=== PATIENT | male | born 1965 | race Caucasian/White ===

== ENCOUNTER 2020-04-17 12:02 | Inpatient (IN) | payer OTHER ==
[2020-04-17] VITALS (17 sets, daily range): BP systolic 113–149; BP diastolic 39–90
[~2020-04-17] VITALS: Ht 182.9 cm; Wt 124.5 kg
--- NOTE | 2020-04-17 12:05 | NUR ---
MD asked pt if he wants pain meds and the pt refused. pt aware he is not to drink anything for now.
[2020-04-17] MEDS ORDERED: NO HOME MEDS (12:16)
[2020-04-17 13:18] LABS: BASOPHILS # (AUTO) 0.1 X10'3 (0-0.2); BASOPHILS % (AUTO) 0.3 % (0-1); EOSINOPHILS % (AUTO) 0 % (0-6); HEMATOCRIT 46.9 % (42.0-52.0); HEMOGLOBIN 15.7 g/dl (14.0-17.9); LYMPHOCYTES # (AUTO) 0.8 X10'3 (1.1-4.8); LYMPHOCYTES % (AUTO) 3.5 % (21-51); MEAN CORPUSCULAR HEMOGLOBIN 28.1 PG (27.0-31.0); MEAN CORPUSCULAR HGB CONC 33.5 g/dL (33.0-36.5); MEAN PLATELET VOLUME 8.7 FL (7.4-10.4); MONOCYTES # (AUTO) 1.8 X10'3 (0-0.9); MONOCYTES % (AUTO) 8.2 % (2-12); NEUTROPHILS # (AUTO) 18.9 X10'3 (1.8-7.7); PLATELET COUNT 306 X10'3 (140-440); RED BLOOD COUNT 5.59 X10'6 (4.70-6.10); RED CELL DISTRIBUTION WIDTH 13.9 % (11.5-14.5); WHITE BLOOD COUNT 21.5 X10'3 (4.5-11.0)
[2020-04-17 13:31] LABS: ALANINE AMINOTRANSFERASE 30 U/L (12-78); ALBUMIN 3.7 G/DL (3.4-5.0); ALKALINE PHOSPHATASE 92 IU/L (46-116); ANION GAP 11 (8-16); ASPARTATE AMINO TRANSFERASE 16 U/L (10-37); BILIRUBIN,TOTAL 1.2 MG/DL (0.1-1.0); BLOOD UREA NITROGEN 13 MG/DL (7-18); BUN/CREATININE RATIO 9.9 (5.4-32.0); CALCIUM 9.4 MG/DL (8.5-10.1); CHLORIDE 97 MMOL/L (99-107); CREATININE 1.31 MG/DL (0.60-1.10); GLUCOSE 276 MG/DL (70-104); LIPASE 75 U/L (73-393); POTASSIUM 3.9 MMOL/L (3.5-5.1); SODIUM 132 MMOL/L (135-145); TOTAL CARBON DIOXIDE 24.5 MMOL/L (24-32); TOTAL PROTEIN 7.5 G/DL (6.4-8.2); eGFR 57 ML/MIN
[2020-04-17] MEDS ORDERED: piperacillin/tazo 3.375gm/50ml 50 ML IV ONE (13:50)
[2020-04-17] MEDS ORDERED: normal saline 1000ML IV soln IVB ONE (13:50)
[2020-04-17] MEDS ORDERED: ondansetron/PF 4mg/2ml inj IV PRN ×2 (14:00→16:35)
[2020-04-17] MEDS ORDERED: mag hydrox/Alum hydrox/simeth 30ml oral suspension PO PRN (14:00)
[2020-04-17] MEDS ORDERED: morphine 2 MG/ML inj. syringe IV PRN ×2 (14:00→16:35)
[2020-04-17] MEDS ORDERED: HYDROcodone/acetaminophen 5mg/325mg tablet PO PRN (14:00)
[2020-04-17] MEDS ORDERED: magnesium hydroxide 30ml (MOM) UD suspension PO PRN (14:00)
[2020-04-17] MEDS ORDERED: dextrose 5%-1/2 normal saline 1,000 ML IV SCH (14:00)
[2020-04-17] MEDS ORDERED: acetaminophen 325mg tablet PO PRN ×2 (14:00)
--- NOTE | 2020-04-17 14:28 | NUR ---
Patient in room ED 8. I have received report from Shi SHAFFER at ED and had the opportunity to ask questions and assume patient care.
[2020-04-17] MEDS ORDERED: BUPIVAcaine/PF 2.5 mg/ml (0.25%) 30ml vial ONE (14:53)
[2020-04-17 15:07] LABS: CLARITY,URINE CLEAR (Clear); COLOR,URINE YELLOW (Yellow); GLUCOSE, URINE 500 mg/dl (Neg); KETONES,URINE >=80 mg/dl (Neg); LEUKOCYTE ESTERASE ,URINE NEGATIVE (Neg); NITRITES, URINE NEGATIVE (Neg); OCCULT BLOOD,URINE NEGATIVE (Neg); PH,URINE 5.5 (4.8-8.0); PROTEIN,URINE TRACE mg/dl (Neg); UA COLLECTION TYPE CLN CATCH MIDSTREAM; UROBILINOGEN,URINE 0.2 E.U/dL (0.2-1.0)
--- NOTE | 2020-04-17 15:10 | NUR ---
Or tech at bedside.
[2020-04-17 15:13] LABS: BACTERIA,URINE NONE SEEN /HPF (Neg); MUCUS STRANDS NONE SEEN /LPF (Neg); RBC,URINE NONE SEEN /HPF (0-2); SQUAMOUS EPITHELIAL CELL,UR FEW /LPF (FEW); WBC,URINE 0-4 /HPF (0-4)
[2020-04-17] MEDS ORDERED: midazolam 2 mg/2 ml injection ONE (15:14)
[2020-04-17] MEDS ORDERED: fentaNYL/PF 50MCG/1 ML 2ML syringe ONE (15:14)
[2020-04-17] MEDS ORDERED: LIDOcaine 1%/PF 5ML 10 MG/ML VIAL ONE (15:26)
[2020-04-17] MEDS ORDERED: sevoflurane 250ml liquid IH ONE (15:26)
[2020-04-17] MEDS ORDERED: insulin regular, human U-100 3ml vial - multi-dose ONE (15:56)
[2020-04-17] MEDS: piperacillin/tazo 4.5gm/100ml 100 ML IV SCH ×2 (16:00→20:49)
[2020-04-17] MEDS ORDERED: ondansetron/PF 4mg/2ml inj ONE (16:14)
[2020-04-17] MEDS ORDERED: propofol inj 20 ML IV ONE (16:14)
[2020-04-17] MEDS ORDERED: succinylcholine 20mg/ml inj IV ONE (16:14)
[2020-04-17] MEDS ORDERED: LIDOcaine 2% (20mg/ml) 5ml vial ONE (16:14)
[2020-04-17] MEDS ORDERED: rocuronium 10mg/ml inj IV ONE (16:14)
[2020-04-17] MEDS ORDERED: glycopyrrolate 0.2mg/ml inj ONE (16:14)
[2020-04-17] MEDS ORDERED: neostigmine methylsulfate 1 MG/ML 10ml vial ONE (16:14)
[2020-04-17] MEDS ORDERED: meperidine/PF 50mg/ml syringe ONE (16:15)
--- NOTE | 2020-04-17 16:28 | NUR ---
Received from OR via , accompanied by Anesthesiologist DR THORPE and report given by Anesthesiolgist. PT WAKES TO VOICE AND IS MOVING EXT X 4, SKIN WARM AND PINK, SCD'S, PIV RIGHT HAND 20G LR 100ML/HR, ABD HAS JOSLYN AND BA'S CD, VSS, ACCUCHECK 211 WITH 6 UNITS REGULAR INSULIN GIVEN.
[2020-04-17] MEDS ORDERED: ringers solution, lacted 1,000 ML IV SCH (16:33)
[2020-04-17] MEDS ORDERED: morphine 4 MG/ML inj SYRINge IV PRN (16:35)
[2020-04-17] MEDS ORDERED: meperidine/PF 25mg/ml syringe IV PRN ×2 (16:35)
[2020-04-17] MEDS ORDERED: proCHLORperazine 10 MG/2 ml inj IV PRN (16:35)
[2020-04-17] MEDS ORDERED: labetalol 20mg/4ml (5mg/ml) syringe IV ONE (16:37)
[2020-04-17] MEDS: meperidine/PF 25mg/ml syringe IV PRN ×3 (16:57→17:43)
--- NOTE | 2020-04-17 17:19 | NUR ---
PT C/O HAVING TO URINATE "REALLY BAD". UNABLE TO VOID USING A URINAL. BLADDER SCAN SHOWS 98MLS IN THE BLADDER. EXPAINED TO PATIENT THAT IT MAY BE MORE OF A PAIN ISSUE. PAIN MEDICATION GIVEN.
--- NOTE | 2020-04-17 17:31 | NUR ---
Report called to receiving nurse. Transferred via BED Belongings . Special Issues communicated to receiving nurse. PT IS AWAKE, ALERT, MOVING EXT X 4,C/O CRAMPING PAIN, R/O URINARY RETENTION USING BLADDER SCAN = 98MLS, PAIN MEDS GIVEN, ABD 3 BA'S CD, SCD'S, PIV PATENT WITH LR 100ML/HR, DASIA ICE CHIPS, MEETS DISCHARGE CRITERIA.
--- NOTE | 2020-04-17 18:27 | NUR ---
Patient in room [facility]. I have received report from branden Giron and had the opportunity to ask questions and assume patient care. pt resting in room, pain 06/04 was medicated prior to arrival to unit, will monitor and give meds as ordered. Addendum: 04/17/20 at 1828 by Martha Sen RN Amended: Links added.
--- NOTE | 2020-04-17 18:33 | NUR ---
Problems reprioritized. Patient report given, questions answered & plan of care reviewed with Eliana SHAFFER.
[2020-04-17] MEDS: morphine 2 MG/ML inj. syringe IV PRN ×2 (19:22→23:06)
--- NOTE | 2020-04-17 20:16 | NUR ---
I called the [employer] company and informed them where the keys are located in the ER registration area, in a locked box. 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 I also was told by ER registration that she would bring the pt's belongings as soon as she was able to leave the desk and deliver them to the patient,
[2020-04-17] MEDS ORDERED: dextrose 50%-water 50ml dispensing syringe IV PRN ×2 (21:40)
[2020-04-17] MEDS ORDERED: glucagon, human recombinant 1mg kit SUBCUT PRN (21:40)
[2020-04-17] MEDS ORDERED: temazepam 15mg capsule PO PRN (21:40)
[2020-04-17] MEDS ORDERED: dextrose ORAL solution 15 GM/59 ML bottle PO PRN ×2 (21:40)
[2020-04-17] MEDS ORDERED: MESSAGE TO PHARMACY PO ONE (21:40)
--- NOTE | 2020-04-17 22:29 | NUR ---
bg 231, Dr. Tilley notified by EDMUND Dickson, orders received. Addendum: 04/17/20 at 2230 by Martha Sen RN Amended: Links added.
--- NOTE | 2020-04-17 23:00 | NUR ---
pt dangled, amb 150 ft slowly states had some brief "light headed" passed quickly. pt painful, pillow given to splint abd. pt burping, no flatus passed, states urge to have bm, sat on toilet no bm. back to bed, poc with pillows. Addendum: 04/18/20 at 0037 by Martha Sen RN Amended: Links added.
[2020-04-17] MEDS: normal saline 1000ml 1,000 ML IV SCH (23:01)
[2020-04-17] MEDS: insulin glargine (Lantus) pen - multi-dose SQ SCH (23:03)
[2020-04-17] MEDS ORDERED: pneumococcal 23-VAL P-sac vacc 25 mcg/0.5ml vial IMVAC ONE (23:45)
[2020-04-18] VITALS: BP_SYST 116; BP_SYST 137; BP_DIAS 63; BP_DIAS 87
[2020-04-18] MEDS: HYDROcodone/acetaminophen 10/325mg tab PO PRN ×4 (00:11→21:12)
[2020-04-18] MEDS: piperacillin/tazo 4.5gm/100ml 100 ML IV SCH ×3 (04:38→20:00)
--- NOTE | 2020-04-18 04:55 | NUR ---
denies pain at this time, pain 01/05, declined pain medication. voided nemesio urine, 450ml bladder scanned shows 35ml residual. Addendum: 04/18/20 at 0456 by Martha Sen RN Amended: Links added.
[2020-04-18 05:13] LABS: ALBUMIN 2.6 G/DL (3.4-5.0); ANION GAP 9 (8-16); BLOOD UREA NITROGEN 13 MG/DL (7-18); BUN/CREATININE RATIO 9.5 (5.4-32.0); CALCIUM 8.1 MG/DL (8.5-10.1); CHLORIDE 103 MMOL/L (99-107); CREATININE 1.37 MG/DL (0.60-1.10); GLUCOSE 291 MG/DL (70-104); POTASSIUM 4.4 MMOL/L (3.5-5.1); SODIUM 136 MMOL/L (135-145); TOTAL CARBON DIOXIDE 23.6 MMOL/L (24-32); eGFR 54 ML/MIN
[2020-04-18 05:18] LABS: BASOPHILS % (AUTO) 0.1 % (0-1); EOSINOPHILS % (AUTO) 0 % (0-6); HEMATOCRIT 39.5 % (42.0-52.0); HEMOGLOBIN 13.1 g/dl (14.0-17.9); LYMPHOCYTES # (AUTO) 0.9 X10'3 (1.1-4.8); LYMPHOCYTES % (AUTO) 5.1 % (21-51); MEAN CORPUSCULAR HGB CONC 33.2 g/dL (33.0-36.5); MEAN CORPUSCULAR VOLUME 84.5 FL (78-98); MEAN PLATELET VOLUME 8.7 FL (7.4-10.4); MONOCYTES # (AUTO) 1.5 X10'3 (0-0.9); MONOCYTES % (AUTO) 8.1 % (2-12); NEUTROPHILS # (AUTO) 16.1 X10'3 (1.8-7.7); NEUTROPHILS % (AUTO) 86.7 % (42-75); PLATELET COUNT 254 X10'3 (140-440); RED BLOOD COUNT 4.68 X10'6 (4.70-6.10); RED CELL DISTRIBUTION WIDTH 13.5 % (11.5-14.5); WHITE BLOOD COUNT 18.5 X10'3 (4.5-11.0)
--- NOTE | 2020-04-18 06:08 | NUR ---
Problems reprioritized. Patient report given, questions answered & plan of care reviewed with EDMUND Giron. Addendum: 04/18/20 at 0608 by Martha Sen RN Amended: Links added.
--- NOTE | 2020-04-18 06:14 | NUR ---
Patient in room [facility]. I have received report from Eliana SHAFFER and had the opportunity to ask questions and assume patient care.
[2020-04-18 07:00] VITALS: BP 113/67
[2020-04-18] MEDS: normal saline 1000ml 1,000 ML IV SCH ×3 (07:38→20:00)
[2020-04-18] MEDS: insulin Lispro (HumaLOG) vial - multi-dose SQ SCH ×3 (09:06→19:01)
[2020-04-18] MEDS ORDERED: pneumococcal 23-VAL P-sac vacc 25 mcg/0.5ml vial IMVAC ONE (10:00)
[2020-04-18 11:00] VITALS: BP 117/72
--- NOTE | 2020-04-18 16:59 | NUR ---
DM Consult "pre-diabetes pending A1C": Resulting A1C 11.8. Pt admit w/ ruptured appendix s/p appendectomy. Pt seen by RD and reports has known of DM DX, has DM meds but has been non-compliant w/ taking per Rx, and has glucometer. 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 RD provided thorough written/verbal DM ed w/ RD contact information; encouraged traveling DM diet management, appropriate snack options, and optimal food choices at restaurants/fast food chains/truck stops. RD reviewed symptoms of hypoglycemia and encouraged pt to at least check GLU before and after driving all day. Pt reports no questions/concerns at this time. Currently on clear liquid diet; would benefit from advancement to carb controlled post-op as medically indicated. Will continue to monitor. Addendum: 04/18/20 at [address] Amended: Links added.
--- NOTE | 2020-04-18 18:26 | NUR ---
Problems reprioritized. Patient report given, questions answered & plan of care reviewed with Shantanu Buck.
[2020-04-18 18:50] VITALS: BP 136/74
[2020-04-18 20:00] VITALS: BP 136/74
[2020-04-18] MEDS: lactobacillus rhamnosus 10,000 MMU CELLS/CAPSULE PO SCH (20:00)
[2020-04-18] MEDS: insulin glargine (Lantus) pen - multi-dose SQ SCH (21:46)
[2020-04-19] VITALS: BP 123/79
[2020-04-19] MEDS: HYDROcodone/acetaminophen 10/325mg tab PO PRN ×2 (01:29→20:15)
[2020-04-19] MEDS: piperacillin/tazo 4.5gm/100ml 100 ML IV SCH ×3 (03:56→20:16)
[2020-04-19 05:48] LABS: BASOPHILS # (AUTO) 0.1 X10'3 (0-0.2); BASOPHILS % (AUTO) 0.3 % (0-1); EOSINOPHILS # (AUTO) 0.1 X10'3 (0-0.9); EOSINOPHILS % (AUTO) 0.6 % (0-6); HEMATOCRIT 38.3 % (42.0-52.0); HEMOGLOBIN 12.8 g/dl (14.0-17.9); LYMPHOCYTES # (AUTO) 0.9 X10'3 (1.1-4.8); LYMPHOCYTES % (AUTO) 5.6 % (21-51); MEAN CORPUSCULAR HEMOGLOBIN 28.3 PG (27.0-31.0); MEAN CORPUSCULAR HGB CONC 33.3 g/dL (33.0-36.5); MEAN PLATELET VOLUME 8.6 FL (7.4-10.4); MONOCYTES # (AUTO) 1.4 X10'3 (0-0.9); MONOCYTES % (AUTO) 8.6 % (2-12); NEUTROPHILS # (AUTO) 14.2 X10'3 (1.8-7.7); NEUTROPHILS % (AUTO) 84.9 % (42-75); PLATELET COUNT 263 X10'3 (140-440); RED BLOOD COUNT 4.51 X10'6 (4.70-6.10); RED CELL DISTRIBUTION WIDTH 13.4 % (11.5-14.5); WHITE BLOOD COUNT 16.8 X10'3 (4.5-11.0)
[2020-04-19 05:54] LABS: ALBUMIN 2.4 G/DL (3.4-5.0); ANION GAP 6 (8-16); BLOOD UREA NITROGEN 11 MG/DL (7-18); BUN/CREATININE RATIO 9.7 (5.4-32.0); CALCIUM 8.5 MG/DL (8.5-10.1); CHLORIDE 103 MMOL/L (99-107); CREATININE 1.13 MG/DL (0.60-1.10); GLUCOSE 187 MG/DL (70-104); POTASSIUM 3.9 MMOL/L (3.5-5.1); SODIUM 134 MMOL/L (135-145); TOTAL CARBON DIOXIDE 24.9 MMOL/L (24-32); eGFR 68 ML/MIN
--- NOTE | 2020-04-19 06:54 | NUR ---
Problems reprioritized. Patient report given, questions answered & plan of care reviewed with PELON. Addendum: 04/19/20 at 0655 by Kerwin Villarreal RN Amended: Links added.
[2020-04-19 08:00] VITALS: BP 140/80
[2020-04-19] MEDS: lactobacillus rhamnosus 10,000 MMU CELLS/CAPSULE PO SCH ×2 (09:11→20:16)
[2020-04-19] MEDS: insulin Lispro (HumaLOG) vial - multi-dose SQ SCH ×2 (09:14→19:42)
[2020-04-19] MEDS: morphine 2 MG/ML inj. syringe IV PRN ×3 (09:32→22:29)
[2020-04-19 11:00] VITALS: BP 136/78
--- NOTE | 2020-04-19 13:15 | NUR ---
Dr. Mane rounded. Spoke to pt re: DC likely 04/21 d/t IV Abx need. Pt to ambulate q3h w/a, and may advance to Reg diet for dinner if no N/V or increased abd distention. IV rate changed to 60cc/h. Pt verbalized understanding and agreed to poc.
[2020-04-19] MEDS: normal saline 1000ml 1,000 ML IV SCH ×2 (13:26→21:20)
--- NOTE | 2020-04-19 18:27 | NUR ---
Patient in room [facility]. I have received report from Jaleesa SHAFFER and had the opportunity to ask questions and assume patient care.
[2020-04-19 20:00] VITALS: BP 147/84
[2020-04-19] MEDS: insulin glargine (Lantus) pen - multi-dose SQ SCH (22:06)
[2020-04-19] MEDS ORDERED: HYDROmorphone 1 mg/ml syringe IV ONE (23:40)
[2020-04-20] VITALS: BP 128/73
[2020-04-20] MEDS: piperacillin/tazo 4.5gm/100ml 100 ML IV SCH ×3 (04:10→19:29)
[2020-04-20 04:57] LABS: BASOPHILS # (AUTO) 0.1 X10'3 (0-0.2); BASOPHILS % (AUTO) 0.4 % (0-1); EOSINOPHILS # (AUTO) 0.5 X10'3 (0-0.9); EOSINOPHILS % (AUTO) 3.4 % (0-6); HEMATOCRIT 37.1 % (42.0-52.0); HEMOGLOBIN 12.3 g/dl (14.0-17.9); LYMPHOCYTES # (AUTO) 0.9 X10'3 (1.1-4.8); MEAN CORPUSCULAR HEMOGLOBIN 28.2 PG (27.0-31.0); MEAN CORPUSCULAR HGB CONC 33.1 g/dL (33.0-36.5); MEAN CORPUSCULAR VOLUME 85.2 FL (78-98); MEAN PLATELET VOLUME 8.6 FL (7.4-10.4); MONOCYTES # (AUTO) 1.5 X10'3 (0-0.9); MONOCYTES % (AUTO) 10.3 % (2-12); NEUTROPHILS % (AUTO) 79.9 % (42-75); PLATELET COUNT 281 X10'3 (140-440); RED BLOOD COUNT 4.35 X10'6 (4.70-6.10); RED CELL DISTRIBUTION WIDTH 13.6 % (11.5-14.5)
[2020-04-20 05:19] LABS: ALBUMIN 2.1 G/DL (3.4-5.0); ANION GAP 10 (8-16); BLOOD UREA NITROGEN 14 MG/DL (7-18); BUN/CREATININE RATIO 10.3 (5.4-32.0); CALCIUM 8.5 MG/DL (8.5-10.1); CHLORIDE 105 MMOL/L (99-107); CREATININE 1.36 MG/DL (0.60-1.10); GLUCOSE 148 MG/DL (70-104); SODIUM 139 MMOL/L (135-145); TOTAL CARBON DIOXIDE 23.6 MMOL/L (24-32); eGFR 55 ML/MIN
--- NOTE | 2020-04-20 06:25 | NUR ---
Problems reprioritized. Patient report given, questions answered & plan of care reviewed with Melany SHAFFER.
[2020-04-20 07:00] VITALS: BP 135/90
[2020-04-20] MEDS: lactobacillus rhamnosus 10,000 MMU CELLS/CAPSULE PO SCH ×2 (07:39→19:24)
[2020-04-20] MEDS: morphine 2 MG/ML inj. syringe IV PRN (07:55)
[2020-04-20 09:00] VITALS: BP 143/74
[2020-04-20] MEDS: insulin Lispro (HumaLOG) vial - multi-dose SQ SCH ×3 (09:51→19:23)
[2020-04-20 12:08] VITALS: BP 142/71
--- NOTE | 2020-04-20 12:09 | NUR ---
MD aware of pt.'s uncontrolled testicular r-sided pain. May have something to do with r-sided appendectomy, however an US was ordered. Pt. encouraged to continue to ambulate.
[2020-04-20] MEDS: normal saline 1000ml 1,000 ML IV SCH (12:32)
--- NOTE | 2020-04-20 15:00 | NUR ---
PT. REFUSES TO WALK W/O ATHLETIC TESTICULAR SUPPORT. CALLED [employer] AND LEFT A MESSAGE TO OBTAIN.
[2020-04-20] MEDS: HYDROcodone/acetaminophen 10/325mg tab PO PRN (17:13)
--- NOTE | 2020-04-20 18:00 | NUR ---
Patient in room [facility]. I have received report from Melany SHAFFER and had the opportunity to ask questions and assume patient care.
--- NOTE | 2020-04-20 18:09 | NUR ---
Gave report to Norma SHAFFER. Pt. in room comfortable with no needs at this time.
[2020-04-20 20:00] VITALS: BP 137/81
[2020-04-20] MEDS: insulin glargine (Lantus) pen - multi-dose SQ SCH (21:38)
[2020-04-21] VITALS: BP 130/76
[2020-04-21] MEDS: piperacillin/tazo 4.5gm/100ml 100 ML IV SCH ×3 (03:52→19:37)
[2020-04-21] MEDS: normal saline 1000ml 1,000 ML IV SCH (04:58)
[2020-04-21 07:00] VITALS: BP 110/77
[2020-04-21 07:01] LABS: BASOPHILS # (AUTO) 0.1 X10'3 (0-0.2); BASOPHILS % (AUTO) 0.7 % (0-1); EOSINOPHILS # (AUTO) 0.7 X10'3 (0-0.9); EOSINOPHILS % (AUTO) 5.8 % (0-6); HEMATOCRIT 34.4 % (42.0-52.0); HEMOGLOBIN 11.4 g/dl (14.0-17.9); LYMPHOCYTES # (AUTO) 1.1 X10'3 (1.1-4.8); LYMPHOCYTES % (AUTO) 9.2 % (21-51); MEAN CORPUSCULAR HEMOGLOBIN 28.3 PG (27.0-31.0); MEAN CORPUSCULAR HGB CONC 33.2 g/dL (33.0-36.5); MEAN CORPUSCULAR VOLUME 85.2 FL (78-98); MEAN PLATELET VOLUME 8.1 FL (7.4-10.4); MONOCYTES # (AUTO) 1.6 X10'3 (0-0.9); MONOCYTES % (AUTO) 12.7 % (2-12); NEUTROPHILS % (AUTO) 71.6 % (42-75); PLATELET COUNT 303 X10'3 (140-440); RED BLOOD COUNT 4.04 X10'6 (4.70-6.10); RED CELL DISTRIBUTION WIDTH 14.1 % (11.5-14.5); WHITE BLOOD COUNT 12.5 X10'3 (4.5-11.0)
[2020-04-21] MEDS: lactobacillus rhamnosus 10,000 MMU CELLS/CAPSULE PO SCH ×2 (07:15→19:37)
[2020-04-21] MEDS: HYDROcodone/acetaminophen 10/325mg tab PO PRN (07:16)
[2020-04-21 07:18] LABS: ANION GAP 10 (8-16); BLOOD UREA NITROGEN 16 MG/DL (7-18); BUN/CREATININE RATIO 12.2 (5.4-32.0); CALCIUM 8.8 MG/DL (8.5-10.1); CHLORIDE 107 MMOL/L (99-107); CREATININE 1.31 MG/DL (0.60-1.10); GLUCOSE 144 MG/DL (70-104); POTASSIUM 3.9 MMOL/L (3.5-5.1); SODIUM 141 MMOL/L (135-145); TOTAL CARBON DIOXIDE 24.1 MMOL/L (24-32); eGFR 57 ML/MIN
[2020-04-21] MEDS: insulin Lispro (HumaLOG) vial - multi-dose SQ SCH ×2 (08:56→18:44)
[2020-04-21] MEDS ORDERED: diatr meglu/diatrizoate 30ml oral sol.-(3 dose) bottle PO SCH (09:00)
--- NOTE | 2020-04-21 10:55 | NUR ---
Called MD Alfonso, spoke to him on the telephone on speaker phone. Notified him that pt. had a BM and is feeling much better. said ok to discharge as long as on oral antibiotics. 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 Ok to shower.
[2020-04-21] MEDS ORDERED: HYDR-4353 PO (11:22)
[2020-04-21] MEDS ORDERED: AMOX-422 PO (11:22)
[2020-04-21 12:00] VITALS: BP 145/70
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
--- NOTE | 2020-04-21 15:58 | NUR ---
PAGE: PAGER ID: [phone] MESSAGE: Zafar Ferreira [id number] Pt. not leaving until after midnight. May I have one time order for amoxicillin for 8pm? No IV. Melany [id number]
[2020-04-21] MEDS ORDERED: amox tr/potassium clavulanate 875/125mg TAB PO ONE ×2 (17:00→20:00)
--- NOTE | 2020-04-21 18:30 | NUR ---
Gave report to Too SHAFFER.
[2020-04-21] MEDS: insulin glargine (Lantus) pen - multi-dose SQ SCH (21:50)
[2020-04-22] VITALS: BP 156/82
[2020-04-22] MEDS: piperacillin/tazo 4.5gm/100ml 100 ML IV SCH (04:00)
--- NOTE | 2020-04-22 04:50 | NUR ---
Patient ride arrived. Escorted out by PCT.
== END 2020-04-22 04:40 | disposition home or self-care (01) | DRG 339 ==
LOC: ER 12:03 → ED HOLD 14:00 → EDBEDREQ 14:10 → PACU 15:50 → SUR 3N 17:53
PROVIDERS: ADMIT Internal Medicine; ATTEND Internal Medicine
PROC: 3E0234Z Introduction of Serum, Toxoid and Vaccine into Muscle, Percutaneous Approach (ICD-10-PCS; 2020-04-17)
PROC: 0DTJ4ZZ Resection of Appendix, Percutaneous Endoscopic Approach (ICD-10-PCS; principal; 2020-04-17 15:26)
PROC: 3E0234Z Introduction of Serum, Toxoid and Vaccine into Muscle, Percutaneous Approach (ICD-10-PCS; 2020-04-18)
DX: K35.32 Acute appendicitis with perforation, localized peritonitis, and gangrene, without abscess (principal); I96 Gangrene, not elsewhere classified; J45.909 Unspecified asthma, uncomplicated; K56.41 Fecal impaction; N45.3 Epididymo-orchitis; R73.03 Prediabetes; Z90.49 Acquired absence of other specified parts of digestive tract; Z23 Encounter for immunization
CPT/HCPCS: 36415; 71045; 74176; 76870; 80048; 80053; 81001; 82948; 83036; 83690; 85025; 86885; 86900; 86901; 87081; 90732; 93005; 96365; 99285; A4215; A4618; A7000; G0378; J0330; J1815; J2001; J2175; J2250; J2270; J2405; J2543; J2704; J2710; J3010; J3490; J7030; Q9963